=== PATIENT | female | born 1980 | race African-American/Black ===

== ENCOUNTER 2019-04-08 22:18 | Emergency (ER) | payer MEDICAID, OTHER ==
[~2019-04-08] VITALS: Ht 160 cm; Wt 72.6 kg
[~2019-04-08 22:18] MED LIST: DILANTIN100 MG ORAL
--- NOTE | 2019-04-08 22:23 | NUR ---
not in waiting room
[2019-04-08 22:32] VITALS: BP 113/76
[2019-04-08] MEDS ORDERED: LEVETIRACETAM500 MG ORAL (22:39)
--- NOTE | 2019-04-08 22:40 | NUR ---
ED Nurse Note: Accucheck performed; 136 BS ERMD aware
--- NOTE | 2019-04-08 22:40 | NUR ---
ED Nurse Note: Pt ambulated into ED from home with sister reporting 2 episodes of seizures this evening. Pt reported sz at 1999 and 2100, in which pt fell and hit her head on left eye and bit tongue on both sides. Pt VSS no s/s of distress noted. Pads applied to bed and bed rails up. Awaiting ERMD
[2019-04-08] MEDS ORDERED: levETIRAcetam 1,000mg/NS100ml 100 ML IVPB ONE (22:45)
--- NOTE | 2019-04-08 22:45 | NUR ---
ED Nurse Note: all medications administered, pt tolerated well no s/s of distress noted VSS
--- NOTE | 2019-04-08 22:50 | NUR ---
ED Nurse Note: ERMD at bedside
--- NOTE | 2019-04-08 22:53 | Emergency Room Report ---
History of Present Illness General Chief Complaint: Seizure Source: Patient, Family Member Present Illness HPI Disclaimer: Please note that this report is being documented using [employer] technology. This can lead to erroneous entry secondary to incorrect interpretation by the dictating instrument. HPI: 39-year-old female presents for evaluation of seizure. She has a history of seizure disorder and takes 200 mg of Dilantin twice daily, 750 of Keppra twice daily. She took all her medications today. She has been compliant with her medication regimen. She was in her usual state of health until today. Last seizure was 2 months ago. She has been on this regimen for 3 months and follows with an outpatient neurologist. According to family, the patient had 2 episodes of generalized tonic-clonic seizures that were witnessed by family member not he present at this time. She fell out of the bed during 1 of these seizures. She was never fully postictal but somewhat somnolent. She is complaining of headache. She also bit her tongue. Noted some swelling over the left eyelid. Denies any urinary incontinence. Otherwise has been in usual state of health and denies any recent fever, chills, sore throat, cough, nausea , vomiting, diarrhea, dysuria, hematuria or rash. PMH: Seizure disorder PSH: Denies Allergies: Denies Social Hx: Denies Allergies: Coded Allergies: No Known Allergies (Unverified , 05/10/13) Patient History Last Menstrual Period: na Nursing Documentation-PMH Hx Cardiac Problems: No Hx Hypertension: No Hx Pacemaker: No Hx Asthma: No Hx COPD: No Hx Diabetes: No Hx Cancer: No Hx Gastrointestinal Problems: No Hx Dialysis: No Hx Neurological Problems: No Hx Cerebrovascular Accident: No Hx Seizures: Yes Review of Systems All Other Systems: negative except mentioned in HPI Physical Exam Vital Signs Date Time Temp Pulse Resp B/P (MAP) Pulse Ox O2 Delivery O2 Flow Rate FiO2 04/08/19 22:32 98.8 84 16 113/76 (88) 99 Room Air General: Awake and alert, no acute distress HEENT: NC/AT. EOMI. Slight tenderness over the orbital rim on the left side. PERRLA. No nystagmus. Superficial abrasion over the tongue that does not require repair Neck: Supple, trachea midline Chest Wall: No tenderness, no deformity Cardiovascular: RRR. S1 and S2 normal. No murmur appreciated Resp: Normal work of breathing. No cough, wheezing or crackles appreciated Abdomen: Abdomen is soft, nondistended. Nontender Skin: Intact. No abrasions, laceration or rash over the exposed skin MSK: Normal tone and bulk. Moving all extremities. No obvious deformity. Neuro: Awake and alert. Mentating appropriately. Moving all extremities. No ataxia in the upper or lower extremities. Good attention and concentration. Medical Decision Making Diagnostic Impression: Primary Impression: Subtherapeutic phenytoin level Additional Impression: Seizure ER Course This is a 39-year-old female history of seizure disorder on Keppra and Dilantin presenting for evaluation of 2 generalized tonic-clonic seizures that aborted spontaneously today prior to arrival. She had a head injury and complained of headache. She had one episode of emesis prior to arrival. Will obtain a head CT and draw broad labs. Will load with Keppra. Laboratory Tests Test 04/08/19 23:24 White Blood Count 11.6 K/UL (4.8-10.8) H Red Blood Count 4.01 M/UL (4.20-5.40) L Hemoglobin 13.7 G/DL (12.0-16.0) Hematocrit 37.9 % (37.0-47.0) Mean Corpuscular Volume 94 FL (80-99) Mean Corpuscular Hemoglobin 34.1 PG (27.0-31.0) H Mean Corpuscular Hemoglobin Concent 36.1 G/DL (32.0-36.0) H Red Cell Distribution Width 11.3 % (11.6-14.8) L Platelet Count 217 K/UL (150-450) Mean Platelet Volume 7.2 FL (6.5-10.1) Neutrophils (%) (Auto) 83.5 % (45.0-75.0) H Lymphocytes (%) (Auto) 8.9 % (20.0-45.0) L Monocytes (%) (Auto) 6.0 % (1.0-10.0) Eosinophils (%) (Auto) 0.1 % (0.0-3.0) Basophils (%) (Auto) 1.4 % (0.0-2.0) Urine Color Pale yellow Urine Appearance Clear Urine pH 5 (4.5-8.0) Urine Specific [place] 1.025 (1.005-1.035) Urine Protein 2+ (NEGATIVE) H Urine Glucose (UA) Negative (NEGATIVE) Urine Ketones Negative (NEGATIVE) Urine Blood 3+ (NEGATIVE) H Urine Nitrite Negative (NEGATIVE) Urine Bilirubin Negative (NEGATIVE) Urine Urobilinogen Normal MG/DL (0.0-1.0) Urine Leukocyte Esterase Negative (NEGATIVE) Urine RBC 5-10 /HPF (0 - 2) H Urine WBC 0-2 /HPF (0 - 2) Urine Squamous Epithelial Cells Many /LPF (NONE/OCC) H Urine Bacteria Few /HPF (NONE) Urine HCG, Qualitative Negative (NEGATIVE) Sodium Level 141 MMOL/L (136-145) Potassium Level 3.6 MMOL/L (3.5-5.1) Chloride Level 104 MMOL/L (98-107) Carbon Dioxide Level 27 MMOL/L (21-32) Anion Gap 10 mmol/L (5-15) Blood Urea Nitrogen 15 mg/dL (7-18) Creatinine 0.8 MG/DL (0.55-1.30) Estimate Glomerular Filtration Rate > 60 mL/min (>60) Glucose Level 123 MG/DL (74-106) H Calcium Level 9.2 MG/DL (8.5-10.1) Total Bilirubin 0.4 MG/DL (0.2-1.0) Aspartate Amino Transferase (AST) 25 U/L (15-37) Alanine Aminotransferase (ALT) 28 U/L (12-78) Alkaline Phosphatase 75 U/L (46-116) Total Protein 7.3 G/DL (6.4-8.2) Albumin 3.7 G/DL (3.4-5.0) Globulin 3.6 g/dL Albumin/Globulin Ratio 1.0 (1.0-2.7) Salicylates Level 2.6 ug/mL (2.8-20) L Urine Opiates Screen Negative (NEGATIVE) Acetaminophen Level < 2 MCG/ML (10-30) L Urine Barbiturates Screen Negative (NEGATIVE) Phenytoin (Dilantin) Level 2.2 ug/mL (10-20) L Phencyclidine (PCP) Screen Negative (NEGATIVE) Urine Amphetamines Screen Negative (NEGATIVE) Urine Benzodiazepines Screen Negative (NEGATIVE) Urine Cocaine Screen Negative (NEGATIVE) Urine Marijuana (THC) Screen Positive (NEGATIVE) H Serum Alcohol < 3 mg/dL CT/MRI/US Diagnostic Results CT/MRI/US Diagnostic Results : Impression CT Head Without Intravenous Contrast CLINICAL HISTORY: INJ TECHNIQUE: Axial computed tomography images of the head/brain without intravenous contrast. CTDI is 53.4 mGy and DLP is 1045.5 mGy-cm. One or more of the following dose reduction techniques were used: automated exposure control, adjustment of the mA and/or kV according to patient size, use of iterative reconstruction technique. COMPARISON: No relevant prior studies available. FINDINGS: Brain: No hemorrhage, extra-axial fluid collection, mass effect, or edema. No grossly evident acute ischemic infarct. Bones/joints: Unremarkable. No acute fracture. Soft tissues: Unremarkable. Sinuses: Unremarkable as visualized. Mastoid air cells: Unremarkable as visualized. No mastoid effusion. IMPRESSION: 1. No acute intracranial abnormality. Radiologist: Mio Cueto MD Electronically Signed: 04/08/19 23:30 Study ready at 23:07 and initial results transmitted at 23:30 Reevaluation Time: 01:00 Last Vital Signs Date Time Temp Pulse Resp B/P (MAP) Pulse Ox O2 Delivery O2 Flow Rate FiO2 04/08/19 22:32 98.8 84 16 113/76 (88) 99 Room Air Status: improved Reevaluation Impression Labs show a subtherapeutic phenytoin level. In addition to receiving Keppra the patient will be given IV phenytoin load. Labs otherwise within normal limits aside from testing positive for THC. No evidence of acute infection or other electrolyte abnormalities. CT scan of the head was unremarkable. Patient is at her neurologic baseline. Can follow-up with her PMD. Discussed the importance of taking her medications as prescribed and to discuss her medication regimen with her neurologist soon as possible. She should return to the emergency department any new or worsening symptoms. She understands and agrees with this treatment plan was discharged home. Disposition: HOME, SELF-CARE Condition: Stable Roland Louie MD Apr 08, 2019 22:53
--- NOTE | 2019-04-08 22:59 | NUR ---
ED Nurse Note: PT taken to CT in stable condition, VSS no s/s of distress noted
--- NOTE | 2019-04-08 23:00 | NUR ---
ED Nurse Note: all blood work and urine sent to lab
--- NOTE | 2019-04-08 23:31 | Diagnostic Imaging Report ---
EXAM: CT Head Without Intravenous Contrast CLINICAL HISTORY: INJ TECHNIQUE: Axial computed tomography images of the head/brain without intravenous contrast. CTDI is 53.4 mGy and DLP is 1045.5 mGy-cm. One or more of the following dose reduction techniques were used: automated exposure control, adjustment of the mA and/or kV according to patient size, use of iterative reconstruction technique. COMPARISON: No relevant prior studies available. FINDINGS: Brain: No hemorrhage, extra-axial fluid collection, mass effect, or edema. No grossly evident acute ischemic infarct. Bones/joints: Unremarkable. No acute fracture. Soft tissues: Unremarkable. Sinuses: Unremarkable as visualized. Mastoid air cells: Unremarkable as visualized. No mastoid effusion. IMPRESSION: 1. No acute intracranial abnormality.
[2019-04-08 23:32] LABS: APPEARANCE,URINE CLEAR; BILIRUBIN, URINE NEGATIVE (NEGATIVE); COLOR,URINE PALE YELLOW; GLUCOSE, URINE (UA) NEGATIVE (NEGATIVE); KETONES,URINE NEGATIVE (NEGATIVE); LEUKOCYTE ESTERASE ,URINE NEGATIVE (NEGATIVE); NITRITE,URINE NEGATIVE (NEGATIVE); PH,URINE 5 (4.5-8.0); PROTEIN,URINE 2+ (NEGATIVE); UROBILINOGEN,URINE NORMAL MG/DL (0.0-1.0)
[2019-04-08 23:47] LABS: ANION GAP 10 mmol/L (5-15); BLOOD UREA NITROGEN 15 mg/dL (7-18); CALCIUM 9.2 MG/DL (8.5-10.1); CARBON DIOXIDE 27 MMOL/L (21-32); CHLORIDE 104 MMOL/L (98-107); CREATININE 0.8 MG/DL (0.55-1.30); POTASSIUM 3.6 MMOL/L (3.5-5.1); SODIUM 141 MMOL/L (136-145)
[2019-04-08 23:51] LABS: ALANINE AMINOTRANSFERASE 28 U/L (12-78); ALBUMIN 3.7 G/DL (3.4-5.0); ALKALINE PHOSPHATASE 75 U/L (46-116); ASPARTATE AMINO TRANSFERASE 25 U/L (15-37); BILIRUBIN,TOTAL 0.4 MG/DL (0.2-1.0)
[2019-04-09 00:11] LABS: BASOPHILS % (AUTO) 1.4 % (0.0-2.0); EOSINOPHILS % (AUTO) 0.1 % (0.0-3.0); HEMATOCRIT 37.9 % (37.0-47.0); HEMOGLOBIN 13.7 G/DL (12.0-16.0); LYMPHOCYTES % (AUTO) 8.9 % (20.0-45.0); MEAN CORPUSCULAR VOLUME 94 FL (80-99); NEUTROPHILS % (AUTO) 83.5 % (45.0-75.0); PLATELET COUNT 217 K/UL (150-450); RED BLOOD COUNT 4.01 M/UL (4.20-5.40); RED CELL DISTRIBUTION WIDTH 11.3 % (11.6-14.8); WHITE BLOOD COUNT 11.6 K/UL (4.8-10.8)
[2019-04-09] MEDS ORDERED: Phenytoin 1,000 MG in NS 275 ML IVPB ONE (01:00)
--- NOTE | 2019-04-09 01:00 | NUR ---
ED Nurse Note: Medications administered for low phenytoin levels, pt tolerated well no s/s of distress noted. Pt RFD after medication complete per ERMD
[2019-04-09 01:47] VITALS: BP 102/56
[2019-04-09 03:22] VITALS: BP 107/57
--- NOTE | 2019-04-09 03:22 | NUR ---
ER DISCHARGE NOTE: Patient is cleared to be discharged home per ERMD, pt is aox4, on room air, with stable vital signs. pt was given dc instructions, pt was able to verbalize understanding, pt id band and iv site removed without complications. pt is able to ambulate with steady gait. pt took all belongings.
== END 2019-04-09 03:22 | disposition home or self-care (01) ==
LOC: EMR 23:59
DX: G40.909 Epilepsy, unspecified, not intractable, without status epilepticus (principal)
CPT/HCPCS: 36415; 70450; 80053; 80185; 80307; 81003; 81025; 82962; 85025; 96365; 96375; G0480; G0481; J1165; J1953; J7050; Z7502; 99284

== ENCOUNTER 2020-02-04 06:44 | Emergency (ER) | payer OTHER ==
[~2020-02-04] VITALS: Ht 160 cm; Wt 72.6 kg
[~2020-02-04 06:44] MED LIST changes: +LEVETIRACETAM500 MG ORAL
[2020-02-04 07:00] VITALS: BP 130/85
[2020-02-04] MEDS ORDERED: Lidocaine 1% MPF 10mg/ml 5ml INJ ONE (07:15)
[2020-02-04] MEDS ORDERED: Azithromycin 250mg tab ORAL ONE (07:15)
[2020-02-04 07:30] LABS: APPEARANCE,URINE CLEAR; BILIRUBIN, URINE NEGATIVE (NEGATIVE); COLOR,URINE PALE YELLOW; GLUCOSE, URINE (UA) NEGATIVE (NEGATIVE); KETONES,URINE NEGATIVE (NEGATIVE); LEUKOCYTE ESTERASE ,URINE NEGATIVE (NEGATIVE); NITRITE,URINE NEGATIVE (NEGATIVE); PH,URINE 6 (4.5-8.0); PROTEIN,URINE NEGATIVE (NEGATIVE); UROBILINOGEN,URINE NORMAL MG/DL (0.0-1.0)
[2020-02-04 08:05] VITALS: BP 124/78
--- NOTE | 2020-02-04 08:47 | Emergency Room Report ---
History of Present Illness General Chief Complaint: Female Urogenital Problems Source: Patient Present Illness HPI 40-year-old female presents status post with vaginal discharge. X2 days. Dysuria. White discharge. Denies pain. Denies fevers or chills. States she has had recent unprotected sex. States her partner was tested and was treated. No other aggravating relieving factors. Denies any other associated symptoms Allergies: Coded Allergies: No Known Allergies (Unverified , 05/10/13) COVID-19 Screening Contact w/high risk pt: No Experienced COVID-19 symptoms?: No COVID-19 Testing performed TECHNICAL ARCHITECT: No Patient History Past Medical History: none Last Menstrual Period: na Now: No Immunizations: UTD Reviewed Nursing Documentation: PMH: Agreed; PSxH: Agreed Nursing Documentation-PMH Hx Cardiac Problems: No Hx Hypertension: No Hx Pacemaker: No Hx Asthma: No Hx COPD: No Hx Diabetes: No Hx Cancer: No Hx Gastrointestinal Problems: No Hx Dialysis: No Hx Neurological Problems: No Hx Cerebrovascular Accident: No Hx Seizures: Yes Review of Systems All Other Systems: negative except mentioned in HPI Physical Exam Vital Signs Date Time Temp Pulse Resp B/P (MAP) Pulse Ox O2 Delivery O2 Flow Rate FiO2 02/04/20 06:49 98.8 100 16 141/80 (100) 98 Room Air Sp02 EP Interpretation: reviewed, normal General Appearance: no apparent distress, alert, GCS 15, non-toxic Head: normocephalic, atraumatic Eyes: bilateral eye normal inspection, bilateral eye PERRL ENT: hearing grossly normal, normal pharynx, no angioedema, normal voice Neck: full range of motion, supple/symm/no masses Respiratory: chest non-tender, lungs clear, normal breath sounds, speaking full sentences Cardiovascular #1: regular rate, rhythm, no edema Cardiovascular #2: 2+ carotid (R), 2+ carotid (L), 2+ radial (R), 2+ radial (L), 2+ dorsalis pedis (R), 2+ dorsalis pedis (L) Gastrointestinal: normal bowel sounds, non tender, soft, non-distended, no guarding, no rebound Rectal: deferred Genitourinary: normal inspection, no CVA tenderness Musculoskeletal: back normal, normal range of motion, gait/station normal, non- tender Neurologic: alert, motor strength/tone normal, oriented x3, sensory intact, responsive, speech normal Psychiatric: judgement/insight normal, memory normal, mood/affect normal, no suicidal/homicidal ideation Reflexes: 3+ bicep (R), 3+ bicep (L), 3+ tricep (R), 3+ tricep (L), 3+ knee (R), 3+ knee (L) Lymphatic: no adenopathy Medical Decision Making Diagnostic Impression: Primary Impression: Possible STD Exposure ER Course Hospital Course 40 year-old female presents ED with discharge. dysuria. h/o unprotected sex Differential diagnoses include: trichimonas, gonorrhea, chlamydia Clinical course Patient placed on stretcher. After initial history physical exam reveals a female in no acute distress. Physical exam unremarkable. I ordered UA UA shows some bacteria, no signs of UTI. Discussed findings with patient. We will treat clinically for gonorrhea/Chlamydia Given azithromycin/Rocephin in ED. Safe for discharge with close outpatient follow-up. I will provide STD clinic referrals. States she has a PMD Diagnosis -possible STD exposure Stable and discharged home. Instructed to followup with PMD. Return to ED if symptoms recur or worsen Labs Test 02/04/20 06:58 Urine Color Pale yellow Urine Appearance Clear Urine pH 6 (4.5-8.0) Urine Specific [place] 1.010 (1.005-1.035) Urine Protein Negative (NEGATIVE) Urine Glucose (UA) Negative (NEGATIVE) Urine Ketones Negative (NEGATIVE) Urine Blood 4+ (NEGATIVE) Urine Nitrite Negative (NEGATIVE) Urine Bilirubin Negative (NEGATIVE) Urine Urobilinogen Normal MG/DL (0.0-1.0) Urine Leukocyte Esterase Negative (NEGATIVE) Urine RBC 2-4 /HPF (0 - 2) Urine WBC 0-2 /HPF (0 - 2) Urine Squamous Epithelial Cells Few /LPF (NONE/OCC) Urine Bacteria Occasional /HPF (NONE) Urine HCG, Qualitative Negative (NEGATIVE) Last Vital Signs Date Time Temp Pulse Resp B/P (MAP) Pulse Ox O2 Delivery O2 Flow Rate FiO2 02/04/20 07:00 98.7 70 16 130/85 99 Room Air Status: improved Disposition: HOME, SELF-CARE Condition: Stable Referrals: [facility],REFERRING (PCP) [facility] Patient Instructions: Cervicitis, [id number] Edwin Woodward MD Feb 04, 2020 08:47
== END 2020-02-04 08:05 | disposition home or self-care (01) ==
LOC: EMR 07:05
DX: Z20.2 Contact with and (suspected) exposure to infections with a predominantly sexual mode of transmission (principal); G40.909 Epilepsy, unspecified, not intractable, without status epilepticus; Z79.899 Other long term (current) drug therapy
CPT/HCPCS: 81003; 81025; 96372; J0696; Q0144; Z7502; 99283